=== PATIENT | female | born 1955 | race Caucasian/White ===

== ENCOUNTER 2016-06-01 00:38 | Emergency (ER) | payer OTHER ==
[~2016-06-01] VITALS: Ht 170.2 cm; Wt 67.9 kg
[2016-06-01 00:54] VITALS: BP 123/91
[2016-06-01] MEDS ORDERED: NORCO 5/3251 TABLET PO (03:03)
[2016-06-01] MEDS ORDERED: FLEXERIL10 MG PO (03:03)
[2016-06-01] MEDS ORDERED: ZOFRAN ODT4 MG PO (03:03)
== END 2016-06-01 03:25 | disposition home or self-care (01) ==
LOC: RME 00:38 → EME 00:38 → RME 03:25
PROC: 0HQ0XZZ Repair Scalp Skin, External Approach (ICD-10-PCS; principal; 2016-06-01)
DX: S01.01XA Laceration without foreign body of scalp, initial encounter (principal); S13.9XXA Sprain of joints and ligaments of unspecified parts of neck, initial encounter; S40.011A Contusion of right shoulder, initial encounter; V86.69XA Passenger of other special all-terrain or other off-road motor vehicle injured in nontraffic accident, initial encounter
CPT/HCPCS: 70450; 71020; 72040; 73030; 99281; 99283